=== PATIENT | male | born 1980 | race African-American/Black ===

== ENCOUNTER 2019-11-06 00:31 | Inpatient (IN) | payer MEDICARE, MEDICAID ==
[~2019-11-06] VITALS: Ht 185.4 cm; Wt 79.6 kg
[~2019-11-06 00:31] MED LIST: CLARAVIS40 MG PO; CLEOCIN HCL300 MG PO; CLEOCIN HCL75 MG PO; DOMEBORO PACKET1 PKT TP; DOXYCYCLINE 10100 MG PO; HUMIRA40 MG/0.1 IM; LEVAQUIN 5500 MG/TA1 PO; NEXIUM 20MG CAP20 MG PO; NIZORAL SHAMPO120 M1 TP; PREVACID 30MG30 M1 PO; VIBRAMYCIN50 MG/5 ML PO; ZEASORB-AF21 TP; [UNRECOGNIZED DRUG - OTHER] PO; [UNRECOGNIZED DRUG - REMARK]
[2019-11-06 01:09] LABS: BASO # 0.1 (0.0-0.2); BASO % 0.3 % (0.0-2.0); EOS # 0.2 (0.0-0.7); GRAN # 10.6 (1.4-6.5); GRAN % 73.9 % (42.2-75.2); HEMATOCRIT 37.2 % (42.0-52.0); HEMOGLOBIN 12.2 g/dl (13.5-18.0); LYMPH # 2.2 (1.2-3.4); LYMPH % 15.5 % (20.0-51.0); MEAN CELL VOLUME 79 fl (80.0-100.0); MEAN CORPUSCULAR HEMOGLOBIN 26 pg (27.0-31.0); MEAN CORPUSCULAR HGB CONC 33 g/dl (33.0-37.0); MEAN PLATELET VOLUME 9.6 fl (7.4-10.4); MONO # 1.2 (0.1-0.6); MONO % 8.6 % (1.7-9.3); PLATELET COUNT 379 K/mm3 (130-400); RED BLOOD COUNT 4.73 M/mm3 (4.20-5.60)
[2019-11-06 01:22] LABS: BILIRUBIN,TOTAL 0.5 mg/dL (0.0-1.0); C-REACTIVE PROTEIN 4.8 mg/dL (0.0-0.9); CALCIUM 8.8 mg/dL (8.4-10.2); CREATININE, serum 1.19 (0.66-1.25); POTASSIUM 3.5 mmol/L (3.4-5.0); TOTAL PROTEIN 8.5 gm/dL (6.4-8.2)
[2019-11-06 02:52] LABS: INR 1.3 (0.8-3.0); PROTHROMBIN TIME 15.4 SECONDS (9.7-12.8)
--- NOTE | 2019-11-06 04:00 | NUR ---
Patient to medical floor room 352 at this time with LICENSED FUNERAL DIRECTOR, Lana. His sister is at bedside and will be staying the night. Patient and family member oriented to room. PA Jane in room at this time. Admission B assessment complete. Will continue to monitor.
[2019-11-06 04:11] VITALS: BP 121/70; PULSE 77; TEMP 98.4
[2019-11-06] MEDS ORDERED: CLARAVIS30 MG PO (04:40)
--- NOTE | 2019-11-06 07:30 | NUR ---
Assessment complete. Pt resting in bed with eyes closed, easy to arouse, denies pain at this time. Drainage noted from left neck wound, milky, yellow. Saline lock IV to right forearm without s/s of complications. No further needs reported. Call light in reach.
[2019-11-06 08:37] VITALS: BP 116/63; PULSE 56; TEMP 97.5
[2019-11-06 12:14] VITALS: BP 122/67; PULSE 71; TEMP 97.5
--- NOTE | 2019-11-06 12:45 | NUR ---
Pt to OR via bed.
--- NOTE | 2019-11-06 14:15 | NUR ---
Pt back to room following procedure via bed, awake, drowsy, denies pain. VSS. IV antibiotic restarted. Pt's sister at bedside, denies questions or concerns at this time. Call light in reach.
--- NOTE | 2019-11-06 16:51 | NUR ---
Resistance Brazer met with patient and patient's sister, Aspen (ph#[phone]) to discuss discharge planning. Patient lives in [place] with his sister and does not have a PCP at this time. Aspen reports they were living in [place], but recently moved back to [place]. SW will follow up with PCP list. Patient obtains medications from [facility]. Patient does not use any DME and reports he is mostly independent with ADLS. SW spoke with patient and Aspen about Home Health then provided Medicare.gov list of HH agencies. Aspen requested time to review list but was interested in setting up services. SW will follow up tomorrow. Aspen reports she is working with an collections attorney to set up DPOA-HC. Patient plans to return home upon discharge. SW to continue to follow.
[2019-11-06 16:55] VITALS: BP 108/57; PULSE 61; TEMP 97.3
--- NOTE | 2019-11-06 19:00 | NUR ---
Report with CHRISTIANO Trevino. Pt sitting up on side of bed, denies pain, assisted to bathroom with standby assist. IV antibiotic still infusing with continued distal occlusions. Call light in reach.
[2019-11-06 19:31] VITALS: BP 126/70; PULSE 80; TEMP 97.4
--- NOTE | 2019-11-06 20:05 | NUR ---
Report received from Lulu ALVARADO. Pt resting at side of bed. No distress noted. Pt ambulates to bathroom and back without difficulty. Voiding clear, yellow urine. Respirations even and unlabored. Lungs clear. Abdomen soft, nontender. BS+. Pt reports pain in neck incision, but is unable to rate it at this time. Dressing to neck has some sangenous drainage noted but is not completely saturated. Pt denies needs.
--- NOTE | 2019-11-06 22:15 | NUR ---
Dressing to I&D site changed. Guaze had started to fall off. Guaze replaced. Underlying ABD pad was not saturated- left in place.
--- NOTE | 2019-11-06 22:28 | NUR ---
Lisa PIPER called due to pts complaints of pain. Orders received for PRN Tylenol.
[2019-11-06 23:22] VITALS: BP 111/55; PULSE 90; TEMP 100.8
[2019-11-07 03:18] VITALS: BP 106/52; PULSE 64; TEMP 97
[2019-11-07 06:32] LABS: BASO % 0.3 % (0.0-2.0); EOS # 0.4 (0.0-0.7); EOS % 3.7 % (0-4.0); GRAN # 8.4 (1.4-6.5); GRAN % 71.1 % (42.2-75.2); HEMOGLOBIN 11.2 g/dl (13.5-18.0); LYMPH # 1.7 (1.2-3.4); LYMPH % 14.1 % (20.0-51.0); MEAN CELL VOLUME 81 fl (80.0-100.0); MEAN CORPUSCULAR HEMOGLOBIN 26 pg (27.0-31.0); MEAN CORPUSCULAR HGB CONC 32 g/dl (33.0-37.0); MEAN PLATELET VOLUME 9.5 fl (7.4-10.4); MONO # 1.2 (0.1-0.6); PLATELET COUNT 311 K/mm3 (130-400); REDCELL DISTRIBUTION WIDTH-CV 15.3 % (11.5-14.5)
[2019-11-07 06:42] LABS: ALBUMIN 3.1 gm/dL (3.5-5.0); BILIRUBIN,TOTAL 0.4 mg/dL (0.0-1.0); CALCIUM 8.4 mg/dL (8.4-10.2); CREATININE, serum 1.01 (0.66-1.25)
[2019-11-07 07:06] LABS: HEMATOCRIT 34.7 % (42.0-52.0)
--- NOTE | 2019-11-07 07:20 | NUR ---
Report given to Lana ALVARADO. Pt sitting up at side of bed. Denies needs. Saturation noted on dressing. Dressing changed per MD order. Well tolerated by patient.
[2019-11-07 07:55] VITALS: BP 131/68; PULSE 79; TEMP 97.4
--- NOTE | 2019-11-07 12:14 | NUR ---
First visit from the silo erector. No needs right now.
--- NOTE | 2019-11-07 15:28 | NUR ---
Electronic Installer followed up with patient and patient's sister, Aspen. ELENA provided list of primary care physicians and Aspen selected Dr. Alex Murrieta at [facility]. Aspen also selected [facility] from Medicare.gov list of agencies. LEENA contacted [facility] and faxed referral. LEENA spoke with ALEJANDRA Bates about ordering PT/OT to evaluate patient. LEENA spoke with patient and Aspen about previous services with [facility]. Aspen reports this was not a good experience and is not interested in services through [facility] at this time. LEENA spoke with Aspen about [facility], which is another provider in [place] for I/DD services. LEENA provided Aspen with information about [facility] and contact information for their it programmer analyst. LEENA to continue to follow.
[2019-11-07] MEDS ORDERED: BACTRIM DS 8001 TAB PO (15:45)
--- NOTE | 2019-11-07 16:20 | NUR ---
Roving Department End Finder spoke with Vicki at Dr. Murrieta's office and was advised Dr. Murrieta is not accepting new patients. Vicki reported she could ask for an exception, however Dr. Murrieta is not here. Vicki reports Dr. Motnemayor, Dr. Suarez, and Dr. Dougherty are taking new patients. LEENA spoke with patient's sister, Aspen who reports she does not have a preference LEENA spoke with Donna, Roving Department End Finder at [facility] who advised Dr. Dougherty is taking new patients and could accept. Donna reports when she sees the discharge go through, they can contact patient to set up initial appointment.
--- NOTE | 2019-11-07 16:34 | NUR ---
Steel Tier notified patient to discharge today. LEENA contacted [facility] and was advised they can accept referral. LEENA faxed discharge orders. LEENA met with patient and Aspen to advise Dr. Dougherty will accept and will contact them to set up appointment. LEENA will follow up on this tomorrow to ensure appointment is made. No additional needs at this time.
--- NOTE | 2019-11-07 17:24 | NUR ---
PATIENT DC TO HOME ACCOMPANIED BY SISTER PAIL TESTER AT 1720 VIA PRIVATE VEHICLE. PRINTED DC INSTRUCTIONS TO INCLUDE FOLLOW UP APPOINTMENTS, WOUND CARE, AND MEDICATIONS REVIEWED WITH SISTER AND PATIENT. ALL QUESTIONS AND CONCERNS ADDRESSED DURING REVIEW.
--- NOTE | 2019-11-08 08:45 | NUR ---
News Reel Cameraman followed up with Donna at [facility] and provided contact information for patient's sister, Aspen. Donna advised she would follow up with Aspen today to set up an appointment.
== END 2019-11-07 17:20 | disposition home health service (06) | DRG 872 ==
LOC: COL.ER 00:31 → MEDICAL 02:38
PROVIDERS: Nurse Practitioner; Nurse Practitioner Family; Otolaryngology; ADMIT Hospitalist
PROC: 0J953ZZ Drainage of Left Neck Subcutaneous Tissue and Fascia, Percutaneous Approach (ICD-10-PCS; principal; 2019-11-06 14:00)
DX: A41.9 Sepsis, unspecified organism (principal); L02.11 Cutaneous abscess of neck; R62.50 Unspecified lack of expected normal physiological development in childhood; L73.9 Follicular disorder, unspecified; L73.2 Hidradenitis suppurativa; K04.7 Periapical abscess without sinus; F79 Unspecified intellectual disabilities; E11.65 Type 2 diabetes mellitus with hyperglycemia
CPT/HCPCS: 99222-AI; 99231-AI; 99239; J0690; J1885; J2270; J2405; J2543; J2704; J3010; J3370; J7030; J7040; J7050; Q9967

== ENCOUNTER 2020-09-25 19:38 | Emergency (ER) | payer MEDICARE, MEDICAID ==
[~2020-09-25] VITALS: Ht 185.4 cm; Wt 87.3 kg
[~2020-09-25 19:38] MED LIST changes: +BACTRIM DS 8001 TAB PO; +CLARAVIS30 MG PO
[2020-09-25 19:45] VITALS: TEMP 98.3
[2020-09-25 20:59] LABS: BASO % 0.2 % (0.0-2.0); EOS # 0.2 (0.0-0.7); EOS % 1.8 % (0-4.0); GRAN # 6.7 (1.4-6.5); HEMATOCRIT 46.6 % (42.0-52.0); HEMOGLOBIN 15.8 g/dl (13.5-18.0); LYMPH # 1.9 (1.2-3.4); LYMPH % 19.5 % (20.0-51.0); MEAN CELL VOLUME 83 fl (80.0-100.0); MEAN CORPUSCULAR HEMOGLOBIN 28 pg (27.0-31.0); MEAN CORPUSCULAR HGB CONC 34 g/dl (33.0-37.0); MEAN PLATELET VOLUME 10.1 fl (7.4-10.4); MONO % 9.7 % (1.7-9.3); PLATELET COUNT 233 K/mm3 (130-400); RED BLOOD COUNT 5.61 M/mm3 (4.20-5.60); REDCELL DISTRIBUTION WIDTH-CV 12.8 % (11.5-14.5)
[2020-09-25 21:16] LABS: ALBUMIN 4.6 gm/dL (3.5-5.0); C-REACTIVE PROTEIN 5.6 mg/dL (0.0-0.9); CALCIUM 9.5 mg/dL (8.4-10.2); CREATININE, serum 1.61 (0.66-1.25); POTASSIUM 3.7 mmol/L (3.4-5.0); TOTAL PROTEIN 8.5 gm/dL (6.4-8.2)
[2020-09-25 21:20] LABS: COLLECTION METHOD CLEAN CATCH
[2020-09-25 21:26] LABS: PH 5 (5-8); SQUAMOUS EPITHELIAL 0-2 /hpf; URINE APPEARANCE Clear; URINE BACTERIA None Seen /hpf; URINE BILIRUBIN Negative (NEGATIVE); URINE BLOOD 1+ (NEGATIVE); URINE COLOR Yellow; URINE GLUCOSE Negative (NEGATIVE); URINE KETONE 1+ (NEGATIVE); URINE LEUKOCYTE ESTERASE Negative (NEGATIVE); URINE NITRATE Negative (NEGATIVE); URINE PROTEIN(semi-quant) Negative (NEGATIVE); URINE UROBILINOGEN Negative (NEGATIVE)
[2020-09-25 22:58] VITALS: BP 134/78; PULSE 84
== END 2020-09-25 22:58 | disposition home or self-care (01) ==
LOC: COL.ER 19:38
PROVIDERS: Emergency Medicine; Nurse Practitioner
DX: N20.1 Calculus of ureter (principal)
CPT/HCPCS: J1885; J2270; Q9967

== ENCOUNTER 2023-08-20 17:28 | Inpatient (IN) | payer MEDICARE, MEDICAID ==
[~2023-08-20] VITALS: Ht 180.3 cm; Wt 76.0 kg
[2023-08-20 18:24] LABS: BASO % 0.3 % (0.0-2.0); EOS % 0.2 % (0.0-4.0); GRAN # 9.1 K/mm3 (1.4-6.5); GRAN % 82.5 % (42.2-75.2); HEMATOCRIT 38.9 % (42.0-52.0); HEMOGLOBIN 12.6 g/dl (13.5-18.0); LYMPH % 9.2 % (20.0-51.0); MEAN CELL VOLUME 81 fl (80.0-100.0); MEAN CORPUSCULAR HEMOGLOBIN 26 pg (27-31); MEAN CORPUSCULAR HGB CONC 32 g/dl (33.0-37.0); MEAN PLATELET VOLUME 9.3 fl (7.4-10.4); MONO # 0.8 K/mm3 (0.1-0.6); MONO % 7.3 % (1.7-9.3); PLATELET COUNT 388 K/mm3 (130-400); RED BLOOD COUNT 4.82 M/mm3 (4.20-5.60); REDCELL DISTRIBUTION WIDTH-CV 14.6 % (11.5-14.5)
[2023-08-20] MEDS ORDERED: PRINIVIL10 MG PO (18:38)
[2023-08-20 18:39] LABS: ALBUMIN 3.3 gm/dL (3.5-5.0); BILIRUBIN,TOTAL 0.7 mg/dL (0.2-1.2); CALCIUM 9.7 mg/dL (8.4-10.2); CREATININE, serum 1.03 mg/dL (0.72-1.25); POTASSIUM 4.1 mmol/L (3.5-4.5); TOTAL PROTEIN 8.8 gm/dL (6.2-8.1)
[2023-08-20] MEDS ORDERED: LIPITOR 40MG TA40 MG PO (18:39)
[2023-08-20] MEDS ORDERED: MYSOLINE 5050 MG/TAB PO (18:39)
[2023-08-20] MEDS ORDERED: RINVOQ ER15 MG PO (18:40)
[2023-08-20] MEDS ORDERED: Morphine 4 MG/ML VIAL IV ONE (18:45)
[2023-08-20] MEDS ORDERED: Melatonin 3 MG TAB PO PRN (21:00)
[2023-08-20] MEDS ORDERED: Acetaminophen 500 MG TAB PO PRN (21:00)
[2023-08-20] MEDS ORDERED: Ondansetron 4 MG/2 ML VIAL IV PRN (21:00)
[2023-08-20] MEDS ORDERED: hydrALAZINE 20 MG/ML 1 ML VIAL IV PRN (21:00)
[2023-08-20] MEDS ORDERED: NS 1,000 ML IV SCH (21:00)
[2023-08-20] MEDS ORDERED: Vancomycin 1.75 GM,Special Dose/Pharmacy Prepared 1.75 GM in NS 500 ML IV ONE (21:15)
--- NOTE | 2023-08-20 21:25 | NUR ---
Vancomycin Initial Dosing Pharmacy Note Ordering provider: NOE Indication/duration: SSTI Relevant comorbidities: 42 YO MALE, H/O DRAINING LESIONS REQUIRING ABX LABS: CRCL 74 ML/MIN Recommendation: CONTINUTE WITH EMPERIC COVERAGE, NO TROUGH ORDERED UNTIL FURTHER WORK UP Loading dose: 1.75 grams Maintenance dose: 1.25 grams every 12 hours Trough goal: 10-15 ug/mL
[2023-08-20 22:51] VITALS: BP 143/78; PULSE 88; TEMP 99
[2023-08-21] VITALS (8 sets, daily range): BP systolic 107–127; BP diastolic 65–77; PULSE 69–95; TEMP 97.5–98.6
--- NOTE | 2023-08-21 03:22 | NUR ---
patient arrived from ED at 2245, alert and oriented x3 with cognitive delay with delayed speech as well. pt's niece provided admission intake information and med rec verification over phone, pt unable to recall own history. pt denies chest pain and shortness of breath, reports stinging/burning pain in armpits with touch and movement only non at rest. bilateral underarm cellulitis/ sores with pus and sweat like drainage, open to air with ambrosio pad underneath. IV in LAC is patent, site is clean dry and intact with NS running at 75 ml/hr. pt ambulates with steady gait. pt has no further needs, questions, or concerns at this time. call light within reach. will continue to monitor.
--- NOTE | 2023-08-21 07:19 | NUR ---
Patient laying in bed, A&O. VSS. IV CDI, fluids infusing. Reports pain in arm pits. Call light within reach. Bed alarm on
[2023-08-21] MEDS ORDERED: Vancomycin 1.25 GM,Special Dose/Pharmacy Prepared 1.25 GM in NS 250 ML IV SCH (09:15)
[2023-08-21] MEDS ORDERED: Primidone 50 MG TAB PO SCH (11:00)
[2023-08-21] MEDS ORDERED: Lisinopril 10 MG TAB PO SCH (11:00)
--- NOTE | 2023-08-21 11:18 | NUR ---
Bilateral armpits cleaned with NS, pat dry. xeroform, and abd pad applied with foam tape to secure. Pillows placed under both arms. Patient tolerated well. Call light within reach
[2023-08-21 14:24] LABS: HEMOGLOBIN 12.4 g/dl (13.5-18.0); MEAN CELL VOLUME 79 fl (80.0-100.0); MEAN CORPUSCULAR HEMOGLOBIN 27 pg (27-31); MEAN CORPUSCULAR HGB CONC 34 g/dl (33.0-37.0); MEAN PLATELET VOLUME 9.4 fl (7.4-10.4); PLATELET COUNT 408 K/mm3 (130-400); RED BLOOD COUNT 4.67 M/mm3 (4.20-5.60); REDCELL DISTRIBUTION WIDTH-CV 14.5 % (11.5-14.5)
[2023-08-21 14:27] LABS: HEMATOCRIT 36.7 % (42.0-52.0)
[2023-08-21] MEDS ORDERED: Atorvastatin 40 MG TAB PO SCH (21:00)
[2023-08-22] VITALS (14 sets, daily range): BP systolic 103–139; BP diastolic 54–79; PULSE 47–61; TEMP 97.5–97.6
--- NOTE | 2023-08-22 07:03 | NUR ---
PT NPO SINCE MIDNIGHT FOR SCHEDULED PROCEDURE @0800, IVF INFUSING PER PIV, NO C/O PAIN OR DISCOMFORT THIS SHIFT, GILSON UNDERARM WOUNDS CONTINUE WITH WEEPY, PUSSY DRAINAGE.
[2023-08-22] MEDS ORDERED: Ondansetron 4 MG/2 ML VIAL IV PRN (07:30)
[2023-08-22] MEDS ORDERED: droPERidol 2.5 MG/ML 2 ML VIAL IV PRN (07:30)
[2023-08-22] MEDS ORDERED: fentaNYL 50 MCG/ML 2 ML VIAL IV PRN (07:30)
[2023-08-22] MEDS ORDERED: Meperidine 50 MG/ML 1 ML VIAL IV PRN (07:30)
[2023-08-22] MEDS ORDERED: HYDROmorphone 2 MG/1 ML VIAL IV PRN (07:30)
--- NOTE | 2023-08-22 07:30 | NUR ---
Patient laying in bed, A&Ox4. VSS. IV CDI, fluids infusing. Dressing armpits intact. Denies pain and discomfort. Patient NPO for a procedure. Patient assisted with standby assist to the bathroom. Call light within reach
[2023-08-22] MEDS ORDERED: Lidocaine PF 2% (20 MG/ML) 5 ML VIAL ONE (07:40)
[2023-08-22] MEDS ORDERED: fentaNYL 50 MCG/ML 2 ML VIAL ONE ×2 (07:40→08:28)
[2023-08-22] MEDS ORDERED: dexAMETHasone 10 MG/ML VIAL ONE (08:24)
[2023-08-22] MEDS ORDERED: diphenhydrAMINE 50 MG/ML 1 ML VIAL ONE (08:24)
[2023-08-22] MEDS ORDERED: Ketorolac 30 MG/ML VIAL ONE (08:30)
[2023-08-22] MEDS ORDERED: Ondansetron 4 MG/2 ML VIAL ONE (08:30)
--- NOTE | 2023-08-22 09:40 | NUR ---
Patient to room 356 from the PACU. Sister at the bedside. Patient A&O, but drowsy. VSS. Post op VS monitored. IV CDI, fluids by gravity. Nurse oriented the patient to location, room and call light. Dressing bilateral arm pits intact. Will continue to monitor. Call light within reach
[2023-08-23] VITALS (11 sets, daily range): BP systolic 110–143; BP diastolic 65–78; PULSE 55–78; TEMP 97.5–98.4
[2023-08-23 06:50] LABS: BASO % 0.1 % (0.0-2.0); EOS % 0.3 % (0.0-4.0); GRAN # 8.6 K/mm3 (1.4-6.5); HEMOGLOBIN 10.7 g/dl (13.5-18.0); LYMPH # 1.6 K/mm3 (1.2-3.4); LYMPH % 14.3 % (20.0-51.0); MEAN CELL VOLUME 79 fl (80.0-100.0); MEAN CORPUSCULAR HEMOGLOBIN 26 pg (27-31); MEAN CORPUSCULAR HGB CONC 33 g/dl (33.0-37.0); MEAN PLATELET VOLUME 10.4 fl (7.4-10.4); MONO # 0.8 K/mm3 (0.1-0.6); MONO % 6.8 % (1.7-9.3); PLATELET COUNT 380 K/mm3 (130-400); RED BLOOD COUNT 4.14 M/mm3 (4.20-5.60); REDCELL DISTRIBUTION WIDTH-CV 14.3 % (11.5-14.5)
[2023-08-23 06:58] LABS: HEMATOCRIT 32.6 % (42.0-52.0)
[2023-08-23 07:15] LABS: ALBUMIN 2.5 gm/dL (3.5-5.0); CREATININE, serum 0.93 mg/dL (0.72-1.25); MAGNESIUM 1.9 mg/dL (1.6-2.6); PHOSPHOROUS 3.5 mg/dL (2.3-4.7); POTASSIUM 4.5 mmol/L (3.5-4.5)
--- NOTE | 2023-08-23 11:51 | NUR ---
Assessment completed this am. Pt sitting up in chair with family member at bedside. Dressing to bilateral axilla CDI. Pt denies pain or needs.
--- NOTE | 2023-08-23 14:37 | NUR ---
D: Initial visit: Water Analyst stopped by room on rounds. Pt was resting and content. A: Pt has no needs right now. P: Water Analyst informed pt that if he needed anything from the dot net developer area to let his nurse know. Water Analyst will follow up as needed.
--- NOTE | 2023-08-23 15:27 | NUR ---
community health worker and SW Student, Toshai, met with patient to discuss discharge planning. Rell was able to express he lives with his sister in [place]. Rell did not know his PCP or pharmacy. Patient requested LEENA and LEENA Student speak with his sister, Lily, P# [phone]. LEENA contacted patient's sister, Lily, via telephone. Lily confirmed patient lives with her. PCP is Dr. Dougherty, pharmacy is [facility]. No issues affording medications. Patient has Medicaid [place] and Medicare A and B. Lily reports she helps patient with medical decision making but does not have a DPOA-HC or guardianship. Patient does not have any DME and she reports patient is independent with ADLS. She reports she transports him to and from appointments. Lily reports they have had home health when they lived in [place] for wound care but have not had any since moving to [place]. Karine has no concerns for patient returning home at discharge. Discharge Plan: Home
--- NOTE | 2023-08-23 17:51 | NUR ---
Hettinger administered for c/o pain to bilateral axilla. Dressing to bilateral axilla changed as ordered. Purulent and sanginenous drainage noted to left axilla dressing and sanginenous drainage noted to right axilla. Idoform packing also changed to bilateral wounds. Pt tolerated fair.
--- NOTE | 2023-08-23 20:00 | NUR ---
UPON SHIFT ASSESSMENT, RODRICK WAS AWAKE AND AXO X3 IN BED WATCHING A BASKETBALL GAME. HE CURRENTLY DENIES ANY PAIN AT THIS MOMENT AND VS ARE WNL. DRESSINGS TO BOTH BILATERAL AXILLARY CDI. NO EXCERBATION OF HIDRADENTIS SUPPURATIVA NOTED IN GROIN OR NAPE OF NECK. RODRICK IS PLEASANT AND TOLERATES IV ABX WELL.
--- NOTE | 2023-08-23 21:15 | NUR ---
PRN NORCO GIVEN FOR BILATERAL AXILLARY PAIN.
[2023-08-24] VITALS (9 sets, daily range): BP systolic 93–143; BP diastolic 54–73; PULSE 59–87; TEMP 97.5–99.2
--- NOTE | 2023-08-24 04:17 | NUR ---
ALERTED BY PCT THAT RODRICK HAD LOW BP 93 SYSTOLIC. MANUAL RECHECK OF BP-108/58 ON RT ARM AND 104/58 ON LT ARM.
[2023-08-24 07:10] LABS: BASO % 0.3 % (0.0-2.0); EOS # 0.2 K/mm3 (0.0-0.7); EOS % 2.1 % (0.0-4.0); GRAN # 5.8 K/mm3 (1.4-6.5); GRAN % 66.2 % (42.2-75.2); HEMOGLOBIN 10.1 g/dl (13.5-18.0); LYMPH # 1.9 K/mm3 (1.2-3.4); LYMPH % 21.3 % (20.0-51.0); MEAN CELL VOLUME 81 fl (80.0-100.0); MEAN CORPUSCULAR HEMOGLOBIN 26 pg (27-31); MEAN CORPUSCULAR HGB CONC 33 g/dl (33.0-37.0); MONO # 0.8 K/mm3 (0.1-0.6); MONO % 9.5 % (1.7-9.3); PLATELET COUNT 358 K/mm3 (130-400); RED BLOOD COUNT 3.82 M/mm3 (4.20-5.60); REDCELL DISTRIBUTION WIDTH-CV 14.7 % (11.5-14.5)
[2023-08-24 07:19] LABS: ALBUMIN 2.4 gm/dL (3.5-5.0); CALCIUM 8.9 mg/dL (8.4-10.2); CREATININE, serum 1.09 mg/dL (0.72-1.25); MAGNESIUM 1.8 mg/dL (1.6-2.6); PHOSPHOROUS 3.7 mg/dL (2.3-4.7); POTASSIUM 4.3 mmol/L (3.5-4.5)
--- NOTE | 2023-08-24 07:42 | NUR ---
Patient laying in bed, A&Ox4. VSS. IV CDI, fluids infusing. Denies pain and discomfort. Dressings intact. Call light within reach.
[2023-08-24] MEDS ORDERED: fentaNYL 50 MCG/ML 2 ML VIAL IV PRN (10:15)
[2023-08-24] MEDS ORDERED: Iohexol 300 - 100 ML VIAL IV ONE (15:19)
--- NOTE | 2023-08-24 20:00 | NUR ---
UPON SHIFT ASSESSMENT, RODRICK WAS AWAKE IN BED WATCHING TV. HE IS AXO X 4 AND VERY PLEASANT. AXILLARY DRESSINGS ARE CDI, HE IS AFEBRILE AND VS ARE WNL. HE CURRENTLY DENIES ANY PAIN OR NEEDS AT THIS TIME. CALL LIGHT WITHIN REACH
[2023-08-25] VITALS (10 sets, daily range): BP systolic 98–116; BP diastolic 53–72; PULSE 59–80; TEMP 97.4–98.3
--- NOTE | 2023-08-25 08:00 | NUR ---
Patient sitting up in bed, A&Ox3. VSS. IV CDI. Dressings armpits CDI. Denies pain and discomfort. Call light within reach. Bed alarm on
[2023-08-25 13:55] LABS: BASO % 0.4 % (0.0-2.0); EOS # 0.2 K/mm3 (0.0-0.7); EOS % 2.3 % (0.0-4.0); GRAN % 71.9 % (42.2-75.2); HEMOGLOBIN 10.1 g/dl (13.5-18.0); LYMPH # 1.5 K/mm3 (1.2-3.4); LYMPH % 15.8 % (20.0-51.0); MEAN CELL VOLUME 79 fl (80.0-100.0); MEAN CORPUSCULAR HEMOGLOBIN 26 pg (27-31); MEAN CORPUSCULAR HGB CONC 34 g/dl (33.0-37.0); MEAN PLATELET VOLUME 8.8 fl (7.4-10.4); MONO # 0.9 K/mm3 (0.1-0.6); MONO % 9.2 % (1.7-9.3); PLATELET COUNT 326 K/mm3 (130-400); RED BLOOD COUNT 3.82 M/mm3 (4.20-5.60); REDCELL DISTRIBUTION WIDTH-CV 14.7 % (11.5-14.5)
[2023-08-25 14:22] LABS: ALBUMIN 2.4 gm/dL (3.5-5.0); CALCIUM 8.8 mg/dL (8.4-10.2); CREATININE, serum 0.87 mg/dL (0.72-1.25); MAGNESIUM 1.8 mg/dL (1.6-2.6); PHOSPHOROUS 3.7 mg/dL (2.3-4.7); POTASSIUM 3.9 mmol/L (3.5-4.5)
--- NOTE | 2023-08-25 20:00 | NUR ---
RODRICK IS AXO X3 BUT SEEMED QUITE UPSET UPON SHIFT ASSESSMENT. HE DENIED PAIN AND VS ARE WNL. HE WISHED TO SPEAK TO DAYSHIFT NURSE, ARA. MALE PCT FROM ER VISITED PATIENT BEDSIDE PER REQUEST-RODRICK WANTED TO SPEAK TO ANOTHER MALE. THIS NURSE RECIEVED REPORT FROM ER PCT THAT PATIENT WAS VOICING FRUSTRATION OVER SHOTS AND REPEAT HOSPITILIZATIONS. POSSIBLE SENSORY DEPRIVATION OCCURING. BROUGHT PATIENT COLORING MATERIALS AND ENGAGED IN DEVELOPMENTAL APPROPRIATE CONVERSATION. DRESSINGS TO BILATERAL AXILLARY WOUNDS ARE CDI.
[2023-08-26] VITALS (7 sets, daily range): BP systolic 104–117; BP diastolic 73–76; PULSE 63–65; TEMP 97.8–98.2
--- NOTE | 2023-08-26 | NUR ---
ROUNDED ON PATIENT, RODRICK IS LESS ANXIOUS AND SLEEPING. VS WNL.
[2023-08-26 07:14] LABS: BASO % 0.5 % (0.0-2.0); EOS # 0.4 K/mm3 (0.0-0.7); EOS % 4.6 % (0.0-4.0); GRAN # 4.5 K/mm3 (1.4-6.5); GRAN % 58.3 % (42.2-75.2); HEMOGLOBIN 10.8 g/dl (13.5-18.0); LYMPH # 1.8 K/mm3 (1.2-3.4); LYMPH % 23.8 % (20.0-51.0); MEAN CELL VOLUME 79 fl (80.0-100.0); MEAN CORPUSCULAR HEMOGLOBIN 26 pg (27-31); MEAN CORPUSCULAR HGB CONC 33 g/dl (33.0-37.0); MEAN PLATELET VOLUME 9.2 fl (7.4-10.4); MONO # 0.9 K/mm3 (0.1-0.6); MONO % 12.1 % (1.7-9.3); PLATELET COUNT 342 K/mm3 (130-400); RED BLOOD COUNT 4.14 M/mm3 (4.20-5.60); REDCELL DISTRIBUTION WIDTH-CV 14.9 % (11.5-14.5)
[2023-08-26 07:16] LABS: HEMATOCRIT 32.6 % (42.0-52.0)
[2023-08-26 07:27] LABS: ALBUMIN 2.7 gm/dL (3.5-5.0); CALCIUM 9.1 mg/dL (8.4-10.2); CREATININE, serum 0.9 mg/dL (0.72-1.25); MAGNESIUM 1.7 mg/dL (1.6-2.6); PHOSPHOROUS 3.4 mg/dL (2.3-4.7); POTASSIUM 3.7 mmol/L (3.5-4.5)
[2023-08-26] MEDS ORDERED: AMOXICILLIN 8751 TAB PO (09:43)
[2023-08-26] MEDS ORDERED: NORCO 325 MG-51 TAB PO (09:44)
== END 2023-08-26 16:35 | disposition home or self-care (01) | DRG 607 ==
LOC: COL.ER 17:28 → MEDICAL 19:05
PROVIDERS: Nurse Practitioner Primary Care; ADMIT Internal Medicine
PROC: 0X940ZZ Drainage of Right Axilla, Open Approach (ICD-10-PCS; principal; 2023-08-20)
DX: L73.2 Hidradenitis suppurativa (principal); L02.91 Cutaneous abscess, unspecified; D64.9 Anemia, unspecified; E78.5 Hyperlipidemia, unspecified; F81.9 Developmental disorder of scholastic skills, unspecified; I10 Essential (primary) hypertension
CPT/HCPCS: C1751; G0378; J1100; J1200; J1885; J2270; J2405; J2543; J2704; J3010; J3370; J7030; J7040; J7050; Q3014; Q9967